=== PATIENT | female | born 1960 | race African-American/Black ===

== ENCOUNTER 2018-05-20 16:40 | Emergency (ER) | payer MEDICAID ==
[~2018-05-20] VITALS: Ht 167.6 cm; Wt 66.3 kg
[2018-05-20 17:08] VITALS: BP 116/42
[2018-05-20] MEDS ORDERED: ACETAMINOPHEN 325MG TABLET ONE (17:10)
== END 2018-05-20 23:30 | disposition left against medical advice (07) ==
LOC: ER 16:40
DX: J11.1 Influenza due to unidentified influenza virus with other respiratory manifestations (principal); Z53.21 Procedure and treatment not carried out due to patient leaving prior to being seen by health care provider